=== PATIENT | female | born 1970 | race Two or more races ===

== ENCOUNTER → 2019-05-07 | Outpatient (CLI) | payer OTHER ==
[2019-05-07 17:48] LABS: BASOPHILS ABSOLUTE AUTO 0.05 K/mm3 (0.00-0.23); BASOPHILS PERCENT AUTO 1 % (0-2); EOSINOPHILS PERCENT AUTO 5 % (0-6); Hematocrit 37.9 % (33.0-51.0); Hemoglobin 13.1 g/dL (11.5-16.0); IMMATURE GRAN ABSOLUTE AUTO 0.02 K/mm3 (0.00-0.10); IMMATURE GRAN PERCENT AUTO 0 % (0-1); LYMPHOCYTES ABSOLUTE AUTO 2.67 K/mm3 (0.84-5.20); LYMPHOCYTES PERCENT AUTO 29 % (21-46); MONOCYTES ABSOLUTE AUTO 0.52 K/mm3 (0.16-1.47); MONOCYTES PERCENT AUTO 6 % (4-13); Mean Corpuscular HGB 31.4 pg (26.0-34.0); Mean Corpuscular HGB Conc 34.6 g/dL (31.5-36.5); Mean Corpuscular Volume 91 fL (80-100); Mean Platelet Volume 12.8 fL (9.1-12.4); NEUTROPHILS ABSOLUTE AUTO 5.44 K/mm3 (1.96-9.15); NEUTROPHILS PERCENT AUTO 59 % (41-73); Platelet Count 210 K/mm3 (150-400); RDW Coefficient Variation 12.6 % (11.7-14.2); RDW Standard Deviation 41.9 fL (35.1-46.3); Red Blood Cell Count 4.17 M/mm3 (3.80-5.20)
[2019-05-07 18:07] LABS: Alanine Aminotransfer (ALT/SGP 25 U/L (12-78); Albumin, Blood 3.8 g/dL (3.4-5.0); Alk Phos 76 U/L (40-126); Anion Gap 8 mmol/L (6-16); Aspartate Aminotrans (AST/SGOT 14 U/L (12-37); Bilirubin, Total 0.3 mg/dL (0.1-1.0); Blood Urea Nitrogen 11 mg/dL (8-24); Bun/Creatinine Ratio 19.6 (12.0-20.0); CO2, Blood 26 mmol/L (21-32); Chloride, Blood 102 mmol/L (98-108); Creatinine, Blood 0.56 mg/dL (0.40-1.00); Globulin, Blood 3.7 g/dL (2.2-4.0); Glomerular Filtration Rate >60 (60-); Glucose, Blood 94 mg/dL (70-99); Potassium, Blood 3.6 mmol/L (3.5-5.5); Sodium, Blood 136 mmol/L (136-145); Thyroid Stimulating Hormone 2.012 uIU/mL (0.360-4.800); Total Protein, Blood 7.5 g/dL (6.4-8.2)
== END | disposition home or self-care (01) ==
LOC: LAB EV 17:44 → LAB SHORT 17:44
PROVIDERS: Physician Assistant
DX: L65.9 Nonscarring hair loss, unspecified (principal); R53.83 Other fatigue
CPT/HCPCS: 80053; 84443; 85025

== ENCOUNTER → 2019-07-17 | Outpatient (CLI) | payer OTHER ==
[2019-07-17 13:36] LABS: BASOPHILS ABSOLUTE AUTO 0.04 K/mm3 (0.00-0.23); BASOPHILS PERCENT AUTO 1 % (0-2); EOSINOPHILS ABSOLUTE AUTO 0.16 K/mm3 (0.00-0.68); EOSINOPHILS PERCENT AUTO 3 % (0-6); Hematocrit 37.1 % (33.0-51.0); Hemoglobin 12.6 g/dL (11.5-16.0); IMMATURE GRAN ABSOLUTE AUTO 0.01 K/mm3 (0.00-0.10); IMMATURE GRAN PERCENT AUTO 0 % (0-1); LYMPHOCYTES ABSOLUTE AUTO 2.04 K/mm3 (0.84-5.20); LYMPHOCYTES PERCENT AUTO 36 % (21-46); MONOCYTES ABSOLUTE AUTO 0.38 K/mm3 (0.16-1.47); MONOCYTES PERCENT AUTO 7 % (4-13); Mean Corpuscular HGB 31.6 pg (26.0-34.0); Mean Corpuscular Volume 93 fL (80-100); Mean Platelet Volume 11.7 fL (9.1-12.4); NEUTROPHILS ABSOLUTE AUTO 3.01 K/mm3 (1.96-9.15); NEUTROPHILS PERCENT AUTO 53 % (41-73); Platelet Count 231 K/mm3 (150-400); RDW Coefficient Variation 12.7 % (11.7-14.2); RDW Standard Deviation 43.3 fL (35.1-46.3); Red Blood Cell Count 3.99 M/mm3 (3.80-5.20); White Blood Cell Count 5.64 K/mm3 (4.00-11.30)
[2019-07-17 14:08] LABS: Alanine Aminotransfer (ALT/SGP 23 U/L (12-78); Albumin, Blood 3.6 g/dL (3.4-5.0); Alk Phos 72 U/L (50-136); Anion Gap 6 mmol/L (6-16); Aspartate Aminotrans (AST/SGOT 9 U/L (12-37); Bilirubin, Total 0.5 mg/dL (0.1-1.0); Blood Urea Nitrogen 10 mg/dL (8-24); Bun/Creatinine Ratio 16.5 (12.0-20.0); CO2, Blood 29 mmol/L (21-32); Calcium, Blood 8.9 mg/dL (8.5-10.1); Chloride, Blood 108 mmol/L (98-108); Creatinine, Blood 0.61 mg/dL (0.40-1.00); Globulin, Blood 3.5 g/dL (2.2-4.0); Glomerular Filtration Rate >60 (60-); Glucose, Blood 90 mg/dL (70-99); Potassium, Blood 3.7 mmol/L (3.5-5.5); Sodium, Blood 143 mmol/L (136-145); Total Protein, Blood 7.1 g/dL (6.4-8.2)
[2019-07-17 14:26] LABS: Amylase, Blood 41 U/L (25-115)
== END | disposition home or self-care (01) ==
LOC: LAB EV 13:31 → LAB SHORT 13:31
PROVIDERS: Physician Assistant Surgical
DX: R10.32 Left lower quadrant pain (principal)
CPT/HCPCS: 80053; 82150; 83690; 85025

== ENCOUNTER 2019-10-28 06:32 | Day surgery (SDC) | payer OTHER ==
[~2019-10-28] VITALS: Ht 167.6 cm; Wt 70.9 kg
== END 2019-10-28 09:12 | disposition home or self-care (01) ==
LOC: ORSCSDS 06:32
PROVIDERS: Internal Medicine Gastroenterology
PROC: 3E0H8GC Introduction of Other Therapeutic Substance into Lower GI, Via Natural or Artificial Opening Endoscopic (ICD-10-PCS; principal; 2019-10-28 08:00)
PROC: 0DBN8ZX Excision of Sigmoid Colon, Via Natural or Artificial Opening Endoscopic, Diagnostic (ICD-10-PCS; principal; 2019-10-28 08:00)
PROC: 0DB68ZX Excision of Stomach, Via Natural or Artificial Opening Endoscopic, Diagnostic (ICD-10-PCS; principal; 2019-10-28 08:00)
PROC: 0DBH8ZX Excision of Cecum, Via Natural or Artificial Opening Endoscopic, Diagnostic (ICD-10-PCS; principal; 2019-10-28 08:00)
PROC: 0DB58ZX Excision of Esophagus, Via Natural or Artificial Opening Endoscopic, Diagnostic (ICD-10-PCS; principal; 2019-10-28 08:00)
PROC: 0D757ZZ Dilation of Esophagus, Via Natural or Artificial Opening (ICD-10-PCS; principal; 2019-10-28 08:00)
DX: R13.10 Dysphagia, unspecified (principal); R10.32 Left lower quadrant pain; R93.89 Abnormal findings on diagnostic imaging of other specified body structures; C18.7 Malignant neoplasm of sigmoid colon; D12.0 Benign neoplasm of cecum; B96.81 Helicobacter pylori [H. pylori] as the cause of diseases classified elsewhere; K29.80 Duodenitis without bleeding; K29.70 Gastritis, unspecified, without bleeding; K20.8 Other esophagitis
CPT/HCPCS: 88305; 88342; J0330; J0461; J2001; J2405; J2704; J7120

== ENCOUNTER 2019-12-17 10:44 | Day surgery (SDC) | payer OTHER ==
--- NOTE | 2019-12-21 06:13 | NUR ---
12/21/19 0613 Su Holliday PROCEDURE EDIT FOR PURPOSES OF VERIFICATION.
== END 2019-12-17 13:49 | disposition home or self-care (01) ==
LOC: CT 10:44
DX: C18.7 Malignant neoplasm of sigmoid colon (principal); C78.7 Secondary malignant neoplasm of liver and intrahepatic bile duct; Z88.0 Allergy status to penicillin
CPT/HCPCS: 71045

== ENCOUNTER 2019-12-18 08:06 | Day surgery (SDC) | payer OTHER ==
[~2019-12-18] VITALS: Ht 162.6 cm; Wt 69.5 kg
--- NOTE | 2019-12-18 09:28 | NUR ---
12/18/19 0928 Chantal Bolanos [place] IS PT'S SECOND LANGUAGE. PT OFFERED INTERPRETION SERVICES, PT DECLINED. PT STS SHE FEELS COMFORTABLE DISCUSSING & PROCEEDING IN [place]. PT STS PENICILLIN ALLERGY RESULTS IN RASH & SWELLING. ANCEF 2G IVPB ORDERED. DR. RICE NOTIFIED. PT STS SWELLING WAS LOCATED ON ONE EYE AND PARTIAL LIP. DR. RICE & PATIENT IN AGREEMENT TO PROCEED WITH ANCEF FOR PROPHYLATIC ABX.
--- NOTE | 2019-12-18 13:48 | NUR ---
12/18/19 1348 RAIN SÁNCHEZ *LATE ENTRY - 12-18-2019 AT 1102* CALL FROM JOMAR GUAJARDO TO CONFIRM PLACEMENT OF MEDIPORT VIA XRAY.
== END 2019-12-18 11:28 | disposition home or self-care (01) ==
LOC: ORSCSDS 08:06
PROVIDERS: Surgery
PROC: 05HM33Z Insertion of Infusion Device into Right Internal Jugular Vein, Percutaneous Approach (ICD-10-PCS; principal; 2019-12-18 09:30)
PROC: B5131ZA Fluoroscopy of Right Jugular Veins using Low Osmolar Contrast, Guidance (ICD-10-PCS; principal; 2019-12-18 09:30)
DX: C18.7 Malignant neoplasm of sigmoid colon (principal); C78.7 Secondary malignant neoplasm of liver and intrahepatic bile duct
CPT/HCPCS: 77001; C1788; J0690; J1642; J2001; J2250; J2704; J3010; J7120

== ENCOUNTER → 2020-05-03 | Outpatient (CLI) | payer OTHER ==
[2020-05-03 11:45] LABS: BASOPHILS ABSOLUTE AUTO 0.03 K/mm3 (0.00-0.23); BASOPHILS PERCENT AUTO 1 % (0-2); EOSINOPHILS ABSOLUTE AUTO 0.25 K/mm3 (0.00-0.68); EOSINOPHILS PERCENT AUTO 5 % (0-6); Hematocrit 33.8 % (33.0-51.0); IMMATURE GRAN ABSOLUTE AUTO 0.01 K/mm3 (0.00-0.10); IMMATURE GRAN PERCENT AUTO 0 % (0-1); LYMPHOCYTES ABSOLUTE AUTO 1.42 K/mm3 (0.84-5.20); LYMPHOCYTES PERCENT AUTO 26 % (21-46); MONOCYTES PERCENT AUTO 4 % (4-13); Mean Corpuscular HGB 30.2 pg (26.0-34.0); Mean Corpuscular HGB Conc 32.5 g/dL (31.5-36.5); Mean Corpuscular Volume 93 fL (80-100); NEUTROPHILS ABSOLUTE AUTO 3.59 K/mm3 (1.96-9.15); NEUTROPHILS PERCENT AUTO 65 % (41-73); Platelet Count 189 K/mm3 (150-400); RDW Coefficient Variation 13.4 % (11.7-14.2); RDW Standard Deviation 46.5 fL (35.1-46.3); Red Blood Cell Count 3.64 M/mm3 (3.80-5.20)
[2020-05-03 12:07] LABS: Alanine Aminotransfer (ALT/SGP 20 U/L (12-78); Albumin, Blood 3.3 g/dL (3.4-5.0); Albumin/Globulin Ratio 0.9 (0.8-1.8); Alk Phos 78 U/L (50-136); Anion Gap 3 mmol/L (6-16); Aspartate Aminotrans (AST/SGOT 12 U/L (12-37); Bilirubin, Total 0.4 mg/dL (0.1-1.0); Blood Urea Nitrogen 8 mg/dL (8-24); Bun/Creatinine Ratio 15.2 (12.0-20.0); CO2, Blood 28 mmol/L (21-32); Chloride, Blood 109 mmol/L (98-108); Creatinine, Blood 0.53 mg/dL (0.40-1.00); Globulin, Blood 3.5 g/dL (2.2-4.0); Glomerular Filtration Rate >60 (60-); Glucose, Blood 99 mg/dL (70-99); Sodium, Blood 140 mmol/L (136-145); Total Protein, Blood 6.8 g/dL (6.4-8.2)
[2020-05-03 12:20] LABS: Mean Platelet Volume 13.3 fL (9.1-12.4)
[2020-05-03 13:24] LABS: Bilirubin, Urine Neg (Neg); Blood, Urine Neg (Neg); Glucose Qualitative, Urine Neg (Neg); Ketones, Urine Neg (Neg); Leukocyte Esterase, Urine Neg (Neg); Nitrite, Urine Neg (Neg); Protein, Urine Neg (Neg); Specific Gravity, Urine 1.005 (1.003-1.022); Urobilinogen, Urine NORM (Normal)
[2020-05-03 13:47] LABS: Appearance, Urine Clear (Clear); Color, Urine Yellow (P-Yellow)
== END | disposition home or self-care (01) ==
LOC: LAB 11:02 → LAB SHORT 11:02
PROVIDERS: Registered Nurse Oncology
DX: C18.9 Malignant neoplasm of colon, unspecified (principal); C77.2 Secondary and unspecified malignant neoplasm of intra-abdominal lymph nodes; C78.7 Secondary malignant neoplasm of liver and intrahepatic bile duct
CPT/HCPCS: 80053; 81003; 85025

== ENCOUNTER → 2020-12-22 | Outpatient (CLI) | payer OTHER | END | disposition home or self-care (01) | LOC: PLD 11:57 → LAB SHORT 11:57 | DX: C18.7 Malignant neoplasm of sigmoid colon (principal) | CPT/HCPCS: 88341; 88342; 88360; 88381 ==

== ENCOUNTER → 2022-08-14 | Outpatient (CLI) | payer OTHER ==
[2022-08-14 15:18] LABS: Albumin, Blood 3.4 g/dL (3.4-5.0); Albumin/Globulin Ratio 0.8 (0.8-1.8); Bilirubin, Total 0.5 mg/dL (0.1-1.0); Bun/Creatinine Ratio 15.9 (12.0-20.0); Calcium, Blood 9.2 mg/dL (8.5-10.1); Creatinine, Blood 0.63 mg/dL (0.40-1.00); Phosphorus, Blood 3.6 mg/dL (2.5-4.9); Potassium, Blood 4.4 mmol/L (3.5-5.5); Total Protein, Blood 7.4 g/dL (6.4-8.2)
== END | disposition home or self-care (01) ==
LOC: LAB SHORT 10:13
PROVIDERS: Internal Medicine Hematology & Oncology
DX: C18.9 Malignant neoplasm of colon, unspecified (principal)
CPT/HCPCS: 80053; 82378; 84100

== ENCOUNTER 2022-10-09 03:49 | Day surgery (SDC) | payer OTHER | END 2022-10-09 16:45 | disposition home or self-care (01) | LOC: ATC 03:49 | DX: C18.9 Malignant neoplasm of colon, unspecified (principal) | CPT/HCPCS: 36569; C1751 ==

== ENCOUNTER 2023-09-15 11:38 | Emergency (ER) | payer OTHER ==
[~2023-09-15] VITALS: Ht 165.1 cm; Wt 52.6 kg
[2023-09-15 11:51] VITALS: BP 119/82
[2023-09-15 12:15] LABS: BASOPHILS ABSOLUTE AUTO 0.06 K/mm3 (0.00-0.23); BASOPHILS PERCENT AUTO 0 % (0-2); EOSINOPHILS ABSOLUTE AUTO 0.55 K/mm3 (0.00-0.68); EOSINOPHILS PERCENT AUTO 4 % (0-6); Hematocrit 29.8 % (33.0-51.0); Hemoglobin 9.8 g/dL (11.5-16.0); IMMATURE GRAN ABSOLUTE AUTO 0.06 K/mm3 (0.00-0.10); IMMATURE GRAN PERCENT AUTO 0 % (0-1); LYMPHOCYTES ABSOLUTE AUTO 2.66 K/mm3 (0.84-5.20); LYMPHOCYTES PERCENT AUTO 17 % (21-46); MONOCYTES ABSOLUTE AUTO 1.28 K/mm3 (0.16-1.47); MONOCYTES PERCENT AUTO 8 % (4-13); Mean Corpuscular HGB 27.8 pg (26.0-34.0); Mean Corpuscular HGB Conc 32.9 g/dL (31.5-36.5); Mean Corpuscular Volume 85 fL (80-100); Mean Platelet Volume 11.1 fL (9.1-12.4); NEUTROPHILS ABSOLUTE AUTO 10.66 K/mm3 (1.96-9.15); NEUTROPHILS PERCENT AUTO 70 % (41-73); Platelet Count 353 K/mm3 (150-400); RDW Standard Deviation 45.5 fL (35.1-46.3); Red Blood Cell Count 3.52 M/mm3 (3.80-5.20); White Blood Cell Count 15.27 K/mm3 (4.00-11.30)
[2023-09-15 12:40] LABS: Albumin/Globulin Ratio 0.6 (0.8-1.8); Bilirubin, Total 0.9 mg/dL (0.1-1.0); Bun/Creatinine Ratio 13.7 (12.0-20.0); Calcium, Blood 8.9 mg/dL (8.5-10.1); Creatinine, Blood 0.51 mg/dL (0.40-1.00); Globulin, Blood 5.4 g/dL (2.2-4.0); Potassium, Blood 3.7 mmol/L (3.5-5.5); Total Protein, Blood 8.4 g/dL (6.4-8.2)
[2023-09-15] MEDS ORDERED: Macrobid 100 M100 MG PO (18:05)
[2023-09-15 18:11] LABS: Source, Urine Clean Catch
[2023-09-15 18:23] LABS: Bilirubin, Urine Neg (Neg); Blood, Urine Neg (Neg); Glucose Qualitative, Urine Neg (Neg); Ketones, Urine 2+ (Neg); Leukocyte Esterase, Urine Neg (Neg); Nitrite, Urine Neg (Neg); Protein, Urine 1+ (Neg); Urobilinogen, Urine 2+ (Normal)
[2023-09-15 18:29] LABS: Appearance, Urine Clear (Clear); Color, Urine Yellow (P-Yellow)
== END 2023-09-15 18:18 | disposition home or self-care (01) ==
LOC: ER 11:38
PROVIDERS: Physician Assistant
DX: N30.90 Cystitis, unspecified without hematuria (principal); Z20.822 Contact with and (suspected) exposure to COVID-19; Z88.0 Allergy status to penicillin
CPT/HCPCS: 71046; 74177; 80053; 83690; 83880; 84484; 85025; 93005; 93010; 99284-25; A9270; Q9967

== ENCOUNTER 2023-10-26 07:51 | Inpatient (IN) | payer OTHER ==
[~2023-10-26] VITALS: Ht 165.1 cm; Wt 44.8 kg
[~2023-10-26 07:51] MED LIST: Macrobid 100 M100 MG PO
[2023-10-26 08:29] LABS: Source, Urine Voided
[2023-10-26 08:32] LABS: BASOPHILS ABSOLUTE AUTO 0.06 K/mm3 (0.00-0.23); BASOPHILS PERCENT AUTO 1 % (0-2); EOSINOPHILS ABSOLUTE AUTO 0.46 K/mm3 (0.00-0.68); EOSINOPHILS PERCENT AUTO 4 % (0-6); IMMATURE GRAN ABSOLUTE AUTO 0.02 K/mm3 (0.00-0.10); IMMATURE GRAN PERCENT AUTO 0 % (0-1); LYMPHOCYTES PERCENT AUTO 15 % (21-46); MONOCYTES ABSOLUTE AUTO 1.07 K/mm3 (0.16-1.47); MONOCYTES PERCENT AUTO 10 % (4-13); Mean Corpuscular HGB 26.8 pg (26.0-34.0); Mean Corpuscular HGB Conc 32.4 g/dL (31.5-36.5); Mean Corpuscular Volume 83 fL (80-100); Mean Platelet Volume 11.4 fL (9.1-12.4); NEUTROPHILS ABSOLUTE AUTO 7.25 K/mm3 (1.96-9.15); NEUTROPHILS PERCENT AUTO 70 % (41-73); Platelet Count 364 K/mm3 (150-400); RDW Coefficient Variation 15.6 % (11.7-14.2); Red Blood Cell Count 4.11 M/mm3 (3.80-5.20); White Blood Cell Count 10.36 K/mm3 (4.00-11.30)
[2023-10-26 08:43] LABS: Appearance, Urine Clear (Clear); Blood, Urine Neg (Neg); Color, Urine Yellow (P-Yellow); Glucose Qualitative, Urine Neg (Neg); Ketones, Urine 4+ (Neg); Leukocyte Esterase, Urine 1+ (Neg); Nitrite, Urine Neg (Neg); Protein, Urine 2+ (Neg); Specific Gravity, Urine 1.025 (1.003-1.022); Urobilinogen, Urine 1+ (Normal)
[2023-10-26 08:52] LABS: Albumin, Blood 2.9 g/dL (3.4-5.0); Albumin/Globulin Ratio 0.5 (0.8-1.8); Bilirubin, Total 0.9 mg/dL (0.1-1.0); Bun/Creatinine Ratio 22.9 (12.0-20.0); Calcium, Blood 9.2 mg/dL (8.5-10.1); Creatinine, Blood 0.44 mg/dL (0.40-1.00); Globulin, Blood 5.4 g/dL (2.2-4.0); Potassium, Blood 3.7 mmol/L (3.5-5.5); Total Protein, Blood 8.3 g/dL (6.4-8.2)
[2023-10-26 08:54] LABS: Bilirubin, Urine 1+ (Neg)
[2023-10-26 09:07] LABS: Mucus Mod (0-Heavy)
[2023-10-26 09:08] LABS: Bacteria Few /hpf; Calcium Oxalate Crystals Mod /hpf; Red Blood Cells, Urine 0-2 /hpf (0-2); Squamous Epithelial Cells Few /hpf (Few)
[2023-10-26 14:12] VITALS: BP 127/85
--- NOTE | 2023-10-26 17:12 | NUR ---
SHIFT SUMMARY 1405 RECEIVED PT TO RM 309 VIA GURNEY FROM ER. PT ABLE TO TX SELF TO BED AND THEN TO [facility] TO VOID. PT ADMITTED FOR SBO. PT NPO; ORAL SWABS PROVIDED PER PT REQUEST. IVF'S INFUSING TO RM. DR KUO LATER BY; NEW ORDERS GIVEN. ADDITIONAL IVF'S STARTED AND SUPPOSITORY GIVEN. DR KUO STATED TO HOLD OFF ON PLACING NGT UNLESS PT STARTED VOMITING. PT REPORTED THAT SHE FELT BETTER; DENIED N/V TO PRESENT. PT MEDICATED FOR C/O PAIN; REPORTING IT EFFECTIVE. DENIED PAIN AT THIS TIME. PT WITH LIVER CANCER WITH METS TO LUNGS AND SHOULDER. PT REQUESTING DNR DURING ADMISSION. PALLIATIVE CARE IN TO SEE PT AND WILL RETURN TOMORROW. DENIED FURTHER NEEDS AT THIS TIME. CALL LT IN REACH.
--- NOTE | 2023-10-26 18:45 | NUR ---
Met briefly with pt she was a bit aggitated as pain was strting to creep back up on her. She advised that she has not slept well for ahwile. She states dr smith can offer more treatment. Briefly reviewed levels of care she wants to talk to her family and then think about code status and prognosis. ksp score is 50% will follow up for goal sof care.
[2023-10-26 20:25] VITALS: BP 120/82
[2023-10-27 04:44] VITALS: BP 126/85
--- NOTE | 2023-10-27 05:01 | NUR ---
PT A&O X4, PLEASANT AND COOPERATIVE WITH CARE. MEDICATED FOR ABDOMINAL PAIN--SEE EMAR. PT DENIES ANY N/V. STILL NO BM. PT WAS UP TO BEDSIDE COMMODE AND THERE WAS A TINGE OF BLOOD IN THE TOILET. PT STATES SHE WAS LIKELY STRAINING BECAUSE SHE REALLY WANTS TO HAVE A BM SO THAT SHE CAN EAT. NPO AT THIS TIME. D5/NS INFUISING AT 100 ML/HR. BED KEPT IN LOWEST POSITION IWTH CALL LIGHT WITHIN REACH. WILL CONTINUE TO MONITOR UNTIL END OF SHIFT.
[2023-10-27 05:55] LABS: BASOPHILS PERCENT AUTO 0 % (0-2); EOSINOPHILS PERCENT AUTO 0 % (0-6); Hematocrit 28.8 % (33.0-51.0); Hemoglobin 9.3 g/dL (11.5-16.0); IMMATURE GRAN ABSOLUTE AUTO 0.02 K/mm3 (0.00-0.10); IMMATURE GRAN PERCENT AUTO 0 % (0-1); LYMPHOCYTES ABSOLUTE AUTO 1.22 K/mm3 (0.84-5.20); LYMPHOCYTES PERCENT AUTO 15 % (21-46); MONOCYTES ABSOLUTE AUTO 0.31 K/mm3 (0.16-1.47); MONOCYTES PERCENT AUTO 4 % (4-13); Mean Corpuscular HGB 26.8 pg (26.0-34.0); Mean Corpuscular HGB Conc 32.3 g/dL (31.5-36.5); Mean Corpuscular Volume 83 fL (80-100); Mean Platelet Volume 12.3 fL (9.1-12.4); NEUTROPHILS ABSOLUTE AUTO 6.75 K/mm3 (1.96-9.15); NEUTROPHILS PERCENT AUTO 81 % (41-73); Platelet Count 312 K/mm3 (150-400); RDW Coefficient Variation 15.5 % (11.7-14.2); RDW Standard Deviation 47.2 fL (35.1-46.3); Red Blood Cell Count 3.47 M/mm3 (3.80-5.20)
[2023-10-27 06:53] LABS: Bun/Creatinine Ratio 28.4 (12.0-20.0); Calcium, Blood 8.7 mg/dL (8.5-10.1); Creatinine, Blood 0.42 mg/dL (0.40-1.00); Potassium, Blood 3.9 mmol/L (3.5-5.5)
[2023-10-27 07:41] VITALS: BP 124/85
--- NOTE | 2023-10-27 14:45 | NUR ---
SHIFT SUMMARY PT RESTING QUIETLY AT START OF SHIFT AND CONTINUING TO SLEEP MOST OF AM. PT DID WAKE EASILY FOR CARE AND REMAINED AWAKE THIS AFTERNOON. S/O IN EARLIER TO SEE PT FOR A SHORT WHILE. DR SOTELO IN THIS AM; NEW ORDERS PLACED. PT NOW DOWN TO IMAGING FOR SBFT. PT ABLE TO BE INDEPENDENT TO BSC. WILL CALL FOR ASSIST TO GO INTO [facility] D/T IV PUMP. MEDICATED X1 FOR C/O PAIN THIS SHIFT. AND JUST RECENTLY FOR NAUSEA. IVF'S INFUSING PER EMAR WHEN IN RM. DENIED FURTHER NEEDS. CALL LT IN REACH.
[2023-10-27 15:26] VITALS: BP 134/91
[2023-10-27 20:03] VITALS: BP 120/77
--- NOTE | 2023-10-27 22:01 | NUR ---
PT HAS HAD 2 XLARGE BM SO FAR THIS SHIFT. CURRENTLY NPO DUE TO SMALL BOWEL OBSTRUCTION. TALKED TO DR BARRIENTOS. VERBAL ORDERS GIVEN FOR CLEAR LIQUID DIET.
[2023-10-28 04:05] VITALS: BP 115/96
--- NOTE | 2023-10-28 04:32 | NUR ---
SHIFT SUMMARY PT A&O X4, CALM AND COOPERATIVE WITH CARE. PT NPO AT START OF SHIFT. PASSED XL BM AT START OF SHIFT AND 2 MORE LOOSE STOOLS SINCE. CALLED DR BARRIENTOS AND RECEIVED ORDERS FOR CLEAR LIQUID DIET. PT TOLERATING SO FAR AND DENIES ANY NAUSEA OR VOMITING. MEDICATED FOR ABDOMINAL PAIN PER EMAR. D5/NS INFUISING AT 100 ML/HR. BED KEPT IN LOWEST POSITION WITH CALL LIGHT WITHIN REACH. WILL CONTINUE TO MONITOR.
[2023-10-28 07:34] VITALS: BP 123/76
[2023-10-28] MEDS ORDERED: DECADRON6 M1 PO (11:19)
[2023-10-28] MEDS ORDERED: CELE100 PO (11:19)
[2023-10-28] MEDS ORDERED: ONDA4ODT MM (11:20)
[2023-10-28] MEDS ORDERED: HALO2 PO (11:20)
--- NOTE | 2023-10-28 11:44 | NUR ---
DISCHARGE NOTE: DISCHARGE PAPERWORK DISCUSSED WITH THE PATIENT AND HER AT BEDSIDE. HER IV WAS REMOVED AND HER BELONGINGS WERE COLLECTED. SHE GOT DRESSED AND HER NOTIFIED STAFF THAT WHEELCHAIR ASSISTANCE WON'T BE NEEDED THAT HE WILL BE ABLE TO MANAGE GETTING THE PATIENT TO THEIR VEHCILE. NO SIGNS OR SYMPTOMS OF DISTRESS DURING DISCHARGE.
== END 2023-10-28 11:56 | disposition home or self-care (01) | DRG 375 ==
LOC: ER 07:51 → MEDS 07:52 → ENPENDDIS 10-28 10:35 → MEDS 10-28 11:56
PROVIDERS: Emergency Medicine; ADMIT Internal Medicine
DX: C18.7 Malignant neoplasm of sigmoid colon (principal); C78.01 Secondary malignant neoplasm of right lung; C78.7 Secondary malignant neoplasm of liver and intrahepatic bile duct; C78.02 Secondary malignant neoplasm of left lung; C79.89 Secondary malignant neoplasm of other specified sites; K56.699 Other intestinal obstruction unspecified as to partial versus complete obstruction; Z88.0 Allergy status to penicillin; Z90.49 Acquired absence of other specified parts of digestive tract
CPT/HCPCS: 36415; 74177; 74250; 80048; 80053; 81001; 83690; 85025; 87086; 93005; 93010; 96361; 96374; 96375; 99285-25; A9270; J1100; J1650; J1885; J2270; J2405; J3010; J7030; J7042; Q9963; Q9967

== ENCOUNTER 2024-03-30 18:59 | Emergency (ER) | payer OTHER ==
[~2024-03-30] VITALS: Ht 165.1 cm; Wt 49.9 kg
[~2024-03-30 18:59] MED LIST changes: +CELE100 PO; +DECADRON6 M1 PO; +HALO2 PO; +ONDA4ODT MM
[2024-03-30 19:48] LABS: BASOPHILS ABSOLUTE AUTO 0.07 K/mm3 (0.00-0.23); BASOPHILS PERCENT AUTO 1 % (0-2); EOSINOPHILS PERCENT AUTO 3 % (0-6); Hematocrit 33.2 % (33.0-51.0); Hemoglobin 10.8 g/dL (11.5-16.0); IMMATURE GRAN ABSOLUTE AUTO 0.04 K/mm3 (0.00-0.10); IMMATURE GRAN PERCENT AUTO 0 % (0-1); LYMPHOCYTES ABSOLUTE AUTO 2.27 K/mm3 (0.84-5.20); LYMPHOCYTES PERCENT AUTO 19 % (21-46); MONOCYTES ABSOLUTE AUTO 0.74 K/mm3 (0.16-1.47); MONOCYTES PERCENT AUTO 6 % (4-13); Mean Corpuscular HGB 26.5 pg (26.0-34.0); Mean Corpuscular HGB Conc 32.5 g/dL (31.5-36.5); Mean Corpuscular Volume 82 fL (80-100); NEUTROPHILS ABSOLUTE AUTO 8.21 K/mm3 (1.96-9.15); NEUTROPHILS PERCENT AUTO 70 % (41-73); Platelet Count 348 K/mm3 (150-400); RDW Coefficient Variation 15.2 % (11.7-14.2); RDW Standard Deviation 45.9 fL (35.1-46.3); Red Blood Cell Count 4.07 M/mm3 (3.80-5.20); White Blood Cell Count 11.73 K/mm3 (4.00-11.30)
[2024-03-30 20:26] LABS: Albumin/Globulin Ratio 0.6 (0.8-1.8); Bilirubin, Total 0.5 mg/dL (0.1-1.0); Bun/Creatinine Ratio 14.8 (12.0-20.0); Calcium, Blood 9.2 mg/dL (8.5-10.1); Creatinine, Blood 0.74 mg/dL (0.40-1.00); Globulin, Blood 5.4 g/dL (2.2-4.0); Potassium, Blood 3.9 mmol/L (3.5-5.5); Total Protein, Blood 8.4 g/dL (6.4-8.2)
[2024-03-31] MEDS ORDERED: Ketorolac Tromethamine 30mg Vial IV ONE (00:05)
[2024-03-31] MEDS ORDERED: HYDROmorphone HCl/Pf 1MG SYR IV ONE ×2 (00:05→03:40)
[2024-03-31] MEDS ORDERED: NS 1,000 ML IV SCH ×2 (01:00→01:05)
[2024-03-31 02:00] VITALS: BP 115/76
[2024-03-31 02:14] LABS: Source, Urine Clean Catch
[2024-03-31 02:21] LABS: Bilirubin, Urine Neg (Neg); Blood, Urine Neg (Neg); Glucose Qualitative, Urine Neg (Neg); Ketones, Urine Neg (Neg); Leukocyte Esterase, Urine 2+ (Neg); Nitrite, Urine Neg (Neg); Protein, Urine 1+ (Neg); Urobilinogen, Urine NORM (Normal)
[2024-03-31] MEDS ORDERED: GABA300 PO (02:37)
[2024-03-31 03:00] LABS: Appearance, Urine Clear (Clear); Color, Urine Yellow (P-Yellow)
[2024-03-31 03:01] LABS: Bacteria Few /hpf; Red Blood Cells, Urine Not Seen /hpf (0-2); Squamous Epithelial Cells Few /hpf (Few)
[2024-03-31] MEDS ORDERED: SULTRIDS PO (03:17)
[2024-03-31] MEDS ORDERED: RX Prepack 2 Sprays Naloxone HCL 4 MG/SPRAY UD ONE (03:40)
== END 2024-03-31 04:22 | disposition home or self-care (01) ==
LOC: ER 18:59
PROVIDERS: Nurse Practitioner
DX: C18.9 Malignant neoplasm of colon, unspecified (principal); C78.7 Secondary malignant neoplasm of liver and intrahepatic bile duct; N39.0 Urinary tract infection, site not specified; E86.0 Dehydration; M54.6 Pain in thoracic spine; Z88.0 Allergy status to penicillin; Z79.899 Other long term (current) drug therapy
CPT/HCPCS: 71260; 74177; 80053; 81001; 83690; 85025; 87086; 93005; 93010; 96361; 96374-59; 96375-59; 96376-59; 99284-25; A9270; J1170; J1885; J7030; Q9967